=== PATIENT | male | born 1950 | race Caucasian/White ===

== ENCOUNTER 2024-08-06 11:29 | Emergency (ER) | payer MEDICARE ==
[~2024-08-06] VITALS: Ht 182.8 cm; Wt 111.1 kg
[2024-08-06] MEDS ORDERED: Lidocaine Hydrochloride 2% 10 ML AMP SC ONE (11:45)
[2024-08-06] MEDS ORDERED: CEPHALEXIN500 M1 PO (14:05)
== END 2024-08-06 14:14 | disposition home or self-care (01) ==
LOC: ED 11:29
DX: S01.511A Laceration without foreign body of lip, initial encounter (principal); S89.92XA Unspecified injury of left lower leg, initial encounter; Z91.040 Latex allergy status; Z98.890 Other specified postprocedural states; W10.9XXA Fall (on) (from) unspecified stairs and steps, initial encounter; Y93.01 Activity, walking, marching and hiking; Y92.89 Other specified places as the place of occurrence of the external cause; Y99.8 Other external cause status

== ENCOUNTER 2024-08-13 13:45 | Emergency (ER) | payer MEDICARE ==
[~2024-08-13] VITALS: Ht 182.8 cm; Wt 117.9 kg
[~2024-08-13 13:45] MED LIST: CEPHALEXIN500 M1 PO
== END 2024-08-13 14:15 | disposition home or self-care (01) ==
LOC: ED 13:45
DX: S01.511D Laceration without foreign body of lip, subsequent encounter (principal); Z98.890 Other specified postprocedural states; X58.XXXD Exposure to other specified factors, subsequent encounter